=== PATIENT | female | born 1980 | race Caucasian/White ===

== ENCOUNTER 2017-05-09 20:53 | Emergency (ER) | payer BC ==
[~2017-05-09] VITALS: Ht 157.5 cm; Wt 99.8 kg
[2017-05-09 21:01] VITALS: BP_SYST 143
[2017-05-09 21:59] LABS: BILIRUBIN,URINE NEGATIVE (NEGATIVE); BLOOD, URINE 3+ (NEGATIVE); CLARITY/URINE CLOUDY (CLEAR); COLOR,URINE YELLOW (YELLOW); GLUCOSE,URINE NEGATIVE (NEGATIVE); KETONES,URINE TRACE (NEGATIVE); LEUKOCYTE ESTERASE ,URINE 3+ (NEGATIVE); NITRITE, URINE POSITIVE (NEGATIVE); PH,URINE 6.5 (5.0-8.0); PROTEIN URINE 2+ (NEGATIVE)
[2017-05-09 22:15] VITALS: BP_SYST 137
[2017-05-09 22:24] LABS: RBC,URINE >100 /HPF (0-3)
[2017-05-09 22:25] LABS: BACTERIA,URINE MODERATE /HPF (None Seen); MUCUS,URINE None Seen /LPF (None Seen)
== END 2017-05-09 22:15 | disposition home or self-care (01) ==
LOC: SED 20:53
DX: N39.0 Urinary tract infection, site not specified (principal)
CPT/HCPCS: 81000-TC; 81025; 87086; 99284

== ENCOUNTER 2018-11-18 19:01 | Emergency (ER) | payer BC ==
[~2018-11-18] VITALS: Ht 157.5 cm; Wt 102.1 kg
[2018-11-18 19:22] VITALS: BP_SYST 164
[2018-11-18] MEDS ORDERED: AMOXICILLIN 500 MG CAPSULE PO ONE (19:45)
[2018-11-18] MEDS ORDERED: ERYTHROMYCIN 0.5% EYE OINT 3.5 GM OP ONE (19:45)
[2018-11-18] MEDS ORDERED: ERYTHROMYCIN BASE 0.5% EYE OINT...G. ONE (20:09)
[2018-11-18 20:17] VITALS: BP_SYST 164
== END 2018-11-18 20:17 | disposition home or self-care (01) ==
LOC: SED 19:01
DX: H10.9 Unspecified conjunctivitis (principal); J02.9 Acute pharyngitis, unspecified; I10 Essential (primary) hypertension
CPT/HCPCS: 99283

== ENCOUNTER 2020-07-30 23:35 | Emergency (ER) | payer BC ==
[~2020-07-30] VITALS: Ht 157.5 cm; Wt 81.6 kg
[2020-07-30 23:50] VITALS: BP_SYST 142
[2020-07-31] MEDS ORDERED: PHENAZOPYRIDINE HCL 100 MG TABLET ONE (00:15)
[2020-07-31] MEDS ORDERED: PHENAZOPYRIDINE HCL 100 MG TABLET PO ONE (00:15)
[2020-07-31] MEDS ORDERED: SULFAMETHOXAZOLE/TRIMETHOPR DS 1 TABLET PO ONE (00:15)
[2020-07-31 00:21] LABS: BILIRUBIN,URINE NEGATIVE (NEGATIVE); BLOOD, URINE 3+ (NEGATIVE); CLARITY/URINE CLOUDY (CLEAR); COLOR,URINE RED (YELLOW); GLUCOSE,URINE NEGATIVE (NEGATIVE); KETONES,URINE NEGATIVE (NEGATIVE); LEUKOCYTE ESTERASE ,URINE TRACE (NEGATIVE); NITRITE, URINE NEGATIVE (NEGATIVE); PROTEIN URINE 3+ (NEGATIVE); UROBILINOGEN,URINE 0.2 (0.2-1.0)
[2020-07-31 00:27] LABS: BACTERIA,URINE FEW /HPF (None Seen); RBC,URINE >100 /HPF (0-3)
[2020-07-31 00:42] VITALS: BP_SYST 142
== END 2020-07-31 00:42 | disposition home or self-care (01) ==
LOC: SED 23:35
DX: N39.0 Urinary tract infection, site not specified (principal)
CPT/HCPCS: 81000-TC; 81025; 99283

== ENCOUNTER 2020-08-05 16:03 | Emergency (ER) | payer BC ==
[~2020-08-05] VITALS: Ht 154.9 cm; Wt 83.9 kg
[2020-08-05 16:05] VITALS: BP_SYST 115
--- NOTE | 2020-08-05 16:05 | NUR ---
BROUGHT INTO TRIAGE TENT AND TRIAGED. AWAITING ER BED.
--- NOTE | 2020-08-05 16:20 | NUR ---
URINE COLLECTED AND SENT TO LAB
--- NOTE | 2020-08-05 16:35 | NUR ---
DR SUMNER AT BEDSIDE SPEAKING WITH PT.
[2020-08-05 16:49] LABS: BILIRUBIN,URINE NEGATIVE (NEGATIVE); BLOOD, URINE 2+ (NEGATIVE); CLARITY/URINE CLOUDY (CLEAR); COLOR,URINE YELLOW (YELLOW); GLUCOSE,URINE NEGATIVE (NEGATIVE); KETONES,URINE NEGATIVE (NEGATIVE); LEUKOCYTE ESTERASE ,URINE 2+ (NEGATIVE); NITRITE, URINE NEGATIVE (NEGATIVE); PROTEIN URINE NEGATIVE (NEGATIVE); UROBILINOGEN,URINE 0.2 (0.2-1.0)
[2020-08-05 16:53] LABS: HCG,QUAL RESULT NEGATIVE (NEGATIVE)
[2020-08-05] MEDS ORDERED: cefTRIAXone 1 GM in LIDOCAINE 1%, 20 ML MDV 2.1 ML IM ONE (17:00)
[2020-08-05 17:24] LABS: BACTERIA,URINE FEW /HPF (None Seen); MUCUS,URINE None Seen /LPF (None Seen); WBC,URINE >100 /HPF (0-3)
--- NOTE | 2020-08-05 17:31 | NUR ---
Patient given written and verbal discharge instructions and verbalizes understanding. ER MD discussed with patient the results and treatment provided. Patient in stable condition. ID arm band removed. Rx of BACTRIM given. Patient educated on pain management and to follow up with PMD. Pain Scale 0/10. Opportunity for questions provided and answered. Medication side effect fact sheet provided.
== END 2020-08-05 16:05 | disposition home or self-care (01) ==
LOC: SED 16:03
DX: N39.0 Urinary tract infection, site not specified (principal); I10 Essential (primary) hypertension
CPT/HCPCS: 81000; 84703; 87086; 96372; 99283; J0696; J2001

== ENCOUNTER 2021-01-28 20:54 | Emergency (ER) | payer BC ==
[~2021-01-28] VITALS: Ht 157.5 cm; Wt 86.2 kg
[2021-01-28 21:00] VITALS: BP_SYST 163
[2021-01-29] MEDS ORDERED: DIPH-TET-PERTUS Vaccine 0.5 ML VIAL (ADACEL) I.M. ONE
[2021-01-29] MEDS ORDERED: cefTRIAXone 1 GM in LIDOCAINE 1%, 20 ML MDV 2.1 ML IM ONE (00:30)
[2021-01-29] MEDS ORDERED: CEPH250C PO (00:35)
[2021-01-29] MEDS ORDERED: cephALEXin 500 MG CAPSULE ONE (00:40)
[2021-01-29] MEDS ORDERED: cephALEXin 500 MG CAPSULE PO ONE (00:45)
[2021-01-29 01:07] VITALS: BP_SYST 163
== END 2021-01-29 01:07 | disposition home or self-care (01) ==
LOC: SED 20:54
DX: S99.921A Unspecified injury of right foot, initial encounter (principal); L03.115 Cellulitis of right lower limb; I10 Essential (primary) hypertension; Z79.899 Other long term (current) drug therapy; W22.8XXA Striking against or struck by other objects, initial encounter; Y93.89 Activity, other specified; Y92.89 Other specified places as the place of occurrence of the external cause; Y99.8 Other external cause status
CPT/HCPCS: 90715; 99283

== ENCOUNTER 2022-09-20 15:32 | Emergency (ER) | payer BC ==
[~2022-09-20] VITALS: Ht 154.9 cm; Wt 104.3 kg
[~2022-09-20 15:32] MED LIST: CEPH250C PO
[2022-09-20 16:00] VITALS: BP_SYST 140
--- NOTE | 2022-09-20 16:00 | NUR ---
Patient triaged and placed in waiting room. VSS and patient appears in no acute distress at this time. Accompanied by SELF, awaiting available bed, and MD notified of need for MSE.
--- NOTE | 2022-09-20 17:06 | NUR ---
DR HUNTER IN TRIAGE FOR EXAM
--- NOTE | 2022-09-20 17:48 | NUR ---
COVID AND INFLUENZA SPECIMEN SENT TO LAB
[2022-09-20] MEDS ORDERED: PSEU30TA36 PO (17:49)
[2022-09-20] MEDS ORDERED: ALBMDI INH (17:49)
--- NOTE | 2022-09-20 18:30 | NUR ---
Patient given written and verbal discharge instructions and verbalizes understanding. ER MD discussed with patient the results and treatment provided. Patient in stable condition. ID arm band removed. Rx of ALBUTEROL, SUDAFED given. Patient educated on pain management and to follow up with PMD. Pain Scale . Opportunity for questions provided and answered. Medication side effect fact sheet provided.
[2022-09-20 18:32] VITALS: BP_SYST 140
== END 2022-09-20 18:32 | disposition home or self-care (01) ==
LOC: SED 15:32
DX: J40 Bronchitis, not specified as acute or chronic (principal); R05.9 Cough, unspecified; J02.9 Acute pharyngitis, unspecified; J34.89 Other specified disorders of nose and nasal sinuses; I10 Essential (primary) hypertension; Z79.899 Other long term (current) drug therapy; Z20.822 Contact with and (suspected) exposure to COVID-19
CPT/HCPCS: 36415; 71045; 99284